=== PATIENT | male | born 2000 | race Caucasian/White ===

== ENCOUNTER 2024-11-18 17:54 | Emergency (ER) | payer MEDICAID ==
[~2024-11-18] VITALS: Ht 170.2 cm; Wt 63.0 kg
[2024-11-18 18:02] VITALS: O2SAT 99
[2024-11-18 19:46] LABS: CHLORIDE 107 mEq/L (98-107); POTASSIUM 3.6 mEq/L (3.5-5.1); SODIUM 138 mEq/L (136-145)
[2024-11-18 19:47] LABS: CALCIUM 9.3 mg/dL (8.7-10.4); CARBON DIOXIDE 25 mEq/L (21-32)
[2024-11-18 19:50] LABS: BASOPHILS % 0.1 % (0.0-2.0); EOSINOPHILS % 0.5 % (0.0-5.0); HEMATOCRIT. 44.3 % (42.0-52.0); HEMOGLOBIN. 14.6 g/dL (14.0-18.0); LYMPHOCYTES % 18.3 % (20.0-50.0); MEAN CORPUSCULAR HEMOGLOBIN 26.9 pg (28.0-32.0); MEAN CORPUSCULAR HGB CONC 32.9 g/dL (31.0-37.0); MEAN CORPUSCULAR VOLUME 81.5 fL (80.0-94.0); MEAN PLATELET VOLUME 8.8 fl (7.4-10.4); MONOCYTES % 6.3 % (2.0-8.0); NEUTROPHILS % 74.8 % (40.0-76.0); PLATELET 244 x1000/uL (130-400); RED BLOOD CELL COUNT 5.43 mill/uL (4.7-6.1); RED CELL DISTRIBUTION WIDTH 13.3 % (11.6-14.6); WHITE BLOOD COUNT 11.2 x1000/uL (4.5-11.0)
[2024-11-18 19:52] LABS: CREATININE 0.8 mg/dL (0.6-1.3); ETHANOL BLOOD < 10 mg/dL (<10); GLUCOSE 98 mg/dL (70-105); UREA NITROGEN BLOOD 16 mg/dL (9-23)
[2024-11-18 19:53] LABS: AMMONIA < 17 uMol/L (<32)
[2024-11-18 19:54] LABS: ACETAMINOPHEN < 2 ug/mL (10-30)
[2024-11-18 19:56] LABS: THYROID STIMULATING HORMONE 1.03 uIU/mL (0.55-4.78)
[2024-11-18 20:13] LABS: CLARITY URINE CLEAR (CLEAR); COLOR URINE YELLOW (YELLOW); GLUCOSE URINE NEGATIVE (NEGATIVE); KETONES URINE NEGATIVE (NEGATIVE); LEUKOCYTE ESTERASE URINE NEGATIVE (NEGATIVE); NITRITE URINE NEGATIVE (NEGATIVE); OCCULT BLOOD URINE NEGATIVE (NEGATIVE); PH URINE 7.5 (4.5-8.0); PROTEIN URINE NEGATIVE (NEGATIVE); SPECIFIC GRAVITY URINE 1.009 (1.005-1.030)
[2024-11-18 20:29] LABS: *AMPHETAMINES SCREEN URINE NEGATIVE (NEGATIVE); *BARBITURATES SCREEN URINE NEGATIVE (NEGATIVE); *BENZODIAZEPINES SCREEN URINE NEGATIVE (NEGATIVE); *COCAINE SCREEN URINE NEGATIVE (NEGATIVE); CANNABINOID URINE SCREEN NEGATIVE (NEGATIVE); METHADONE URINE SCREEN NEGATIVE (NEGATIVE); OPIATES URINE SCREEN NEGATIVE (NEGATIVE); PHENCYCLIDINE URINE SCREEN NEGATIVE (NEGATIVE)
[2024-11-18 20:30] LABS: ECSTASY MDMA SCREEN URINE NEGATIVE (NEGATIVE)
[2024-11-18] MEDS: ACETAMINOPHEN 325MG TABLET PO ONE (20:37)
[2024-11-18] MEDS: IBUPROFEN 600MG TABLET PO ONE (22:31)
[2024-11-18] MEDS: METHOCARBAMOL 500MG TABLET PO ONE (22:31)
[2024-11-18] MEDS ORDERED: METH-653 MT (22:49)
[2024-11-18] MEDS ORDERED: IBUP-2029 MT (22:49)
[2024-11-18 22:55] VITALS: BP 108/65; PULSE 55; RESP 12; TEMP 36.8; O2SAT 100
== END 2024-11-18 23:34 | disposition home or self-care (01) ==
LOC: EDBD 18:23 → ER 18:23
DX: R41.82 Altered mental status, unspecified (principal); V89.2XXA Person injured in unspecified motor-vehicle accident, traffic, initial encounter; Y93.89 Activity, other specified; Y92.410 Unspecified street and highway as the place of occurrence of the external cause; Y99.8 Other external cause status
CPT/HCPCS: 36415; 71045; 80048; 80305; 80307; 80320; 80329; 81003; 82140; 82962; 84443; 85025; 99284; G0480